=== PATIENT | female | born 1990 | race Caucasian/White ===

== ENCOUNTER 2024-05-15 21:37 | Emergency (ER) | payer SELFPAY ==
[2024-05-15 21:39] VITALS: BP 107/69
--- NOTE | 2024-05-15 23:44 | ED.GENMED ---
History of Present Illness
General
Chief Complaint: Crisis Evaluation
Source: patient
Exam Limitations: none
Time Seen by Provider: 05/15/24 22:48
History of Present Illness
History of Present Illness:
Patient presents with suicidal ideation and plan. She has not had an attempt. She has a history of same. She just left [place] today. She denies any acute ingestion. Denies acute medical issues.
Past History
Past History
ED Past Medical History: NIDDM and Psychiatric (Bipolar/depression/suicidal ideation)
ED Past Surgical History: Other ( [place] teeth. Myringotomy tubes. Multiple [employer] shunts)
Review of Systems
Review of Systems
All Other Systems: Not applicable
Constitutional: Denies fever or chills
Respiratory: Reports no symptoms
Cardiac: Reports no symptoms
ABD/GI: Reports no symptoms
Phy Exam
Physical Exam
Physical Exam:
GENERAL: Alert and oriented in no apparent distress
EYE: Orbits normal.
NECK: Supple, no significant adenopathy.
ENT: Pharynx without erythema
CARDIAC: Regular rate and rhythm without any obvious murmurs.
LUNGS: Clear breath sounds,normal
ABDOMEN: Soft, without focal tenderness or distention
NEUROLOGICAL: Alert and oriented , grossly non-focal
SKIN: Warm and dry, no rash or lesion, no discoloration, skin intact.
MUSCULOSKELETAL: No edema,no deformity.Good color
PSYCH: Normal and appropriate interaction.
Course
Orders/Labs/Results
Orders:
Orders
05/15/24 22:06
1:1 Observation - Suicide/ Violent Behavior As Directed
05/15/24 22:07
Crisis Consult Urgent
Reason for Consult: si
05/15/24 23:37
Alcohol Urgent
Basic Metabolic Panel Urgent
Complete Blood Count/With Diff Urgent
HCG, Serum Qualitative Screen Urgent
Urine Drug Abuse Screen Urgent
Test Result ONCE
Abnormal Lab Results
05/16/24
00:09
WBC 11.4 H 10^3/uL
(4.8-10.8)
RBC 4.14 L 10^6/uL
(4.20-5.40)
Hgb 11.9 L g/dL
(12.0-16.0)
Hct 35.5 L %
(37.0-47.0)
MPV 10.9 H fL
(7.4-10.4)
Abs Immat Gran (auto) 0.2 H 10^3/uL
(0-0.05)
Absolute Neuts (auto) 8.1 H 10^3/uL
(1.4-6.5)
Absolute Monos (auto) 0.7 H 10^3/uL
(0.1-0.6)
Immature Gran % 1.5 H %
(0-0.5)
Lymphocytes % 20.1 L %
(20.5-51.1)
Carbon Dioxide 21 L mmol/L
(22-30)
Glucose 137 H mg/dl
(70-99)
05/16/24 00:09
05/16/24 00:09
Vital Signs
Initial and Last Documented VS:
Initial Vital Signs
Temp Pulse Resp BP Pulse Ox
98.5 F 92 16 107/69 99
05/15/24 21:39 05/15/24 21:39 05/15/24 21:39 05/15/24 21:39 05/15/24 21:39
Last Documented Vital Signs
Temp Pulse Resp BP Pulse Ox
98.5 F 92 16 107/69 99
05/15/24 21:39 05/15/24 21:39 05/15/24 21:39 05/15/24 21:39 05/15/24 21:39
MDM/Problems Addressed
Differential Diagnosis Includes:
Patient here as a voluntary for psychiatric issues. Cooperative. Nothing acute medically. Will check routine labs needed for placement and if all stable patient will be referred over to crisis
*Critical Care Note
Total Time (30-74mins, 75-104mins- exclusive of procedures): Not Applicable
Update Note
Update Note:
Patient with a mild leukocytosis and minimal bandemia although no acute infectious symptoms. Stable for discharge over to crisis
ED Attending Note
-
Portions of this chart may have been created with voice recognition software.� Occasional wrong word or��sound alike� substitutions may have occurred due to the inherent limitations of voice recognition software.
Discharge Plan
Departure
Patient Disposition: Psych Facility
Date of Disposition: 05/16/24
Time of Disposition: 01:20
Discharge Problem:
Depression/suicidal ideation
Referrals:
Nikia Delacruz DO [Family Provider] -
Interventions
Interventions:
*Risk Screen - Suicide Last Done: 05/15/24 21:39
*General Assessment Last Done: 05/15/24 21:39
*Neglect/Abuse Screening Last Done: 05/15/24 21:39
Discharge Date and Time
Print Language: LUXEMBOURGER
[2024-05-16 00:33] LABS: Blood Urea Nitrogen 12 mg/dl (7-17); Calcium 9.6 mg/dl (8.4-10.2); Carbon Dioxide 21 mmol/L (22-30); Chloride 107 mmol/L (98-107); Glucose 137 mg/dl (70-99); HCG, Serum Qualitative Screen Negative; Potassium 3.9 mmol/L (3.5-5.1); Sodium 138 mmol/L (135-145); eGFR > 60.00
[2024-05-16 00:34] LABS: Alcohol None Detected
[2024-05-16 00:46] LABS: % Basophils 0.3 % (0-2); % Eosinophils 1.3 % (0-6); % Immature Granulocytes 1.5 % (0-0.5); % Lymphocytes 20.1 % (20.5-51.1); % Monocytes 5.9 % (1.7-9.3); % Neutrophils 70.9 % (42.2-75.2); Absolute Eosinophils 0.2 10^3/uL (0-0.7); Absolute Immature Granulocytes 0.2 10^3/uL (0-0.05); Absolute Lymphocytes 2.3 10^3/uL (1.2-3.4); Absolute Monocytes 0.7 10^3/uL (0.1-0.6); Absolute Neutrophils 8.1 10^3/uL (1.4-6.5); Hematocrit 35.5 % (37.0-47.0); Hemoglobin 11.9 g/dL (12.0-16.0); Mean Corp Hgb Conc. 33.5 g/dL (33.0-37.0); Mean Corpuscular Hgb 28.7 pg (27.0-31.0); Mean Corpuscular Volume 85.7 fL (81.0-99.0); Mean Platelet Volume 10.9 fL (7.4-10.4); Nucleated Red Blood Cells % 0 %; Platelet Count 179 10^3/uL (130-400); Red Blood Cell Count 4.14 10^6/uL (4.20-5.40); Red Cell Dist. Width 13.6 % (11.5-14.5); White Blood Cell Count 11.4 10^3/uL (4.8-10.8)
[2024-05-16 01:38] VITALS: BP 90/41
== END 2024-05-16 05:30 ==
LOC: EMR 21:37
PROVIDERS: EMERGENCY PHYSICIAN Emergency Medicine; FAMILY PHYSICIAN Internal Medicine
DX: F32.A Depression, unspecified (principal); R45.851 Suicidal ideations; E11.9 Type 2 diabetes mellitus without complications
CPT/HCPCS: 99285; 80048; 82077; 84703; 85025

== ENCOUNTER 2024-09-01 16:27 | Emergency (ER) | payer OTHER, SELFPAY ==
[2024-09-01 16:33] VITALS: BP 143/74
[2024-09-01 18:14] LABS: % Basophils 0.3 % (0-2); % Eosinophils 1.2 % (0-6); % Immature Granulocytes 0.3 % (0-0.5); % Monocytes 5.7 % (1.7-9.3); % Neutrophils 64.5 % (42.2-75.2); Absolute Eosinophils 0.1 10^3/uL (0-0.7); Absolute Lymphocytes 3.1 10^3/uL (1.2-3.4); Absolute Monocytes 0.6 10^3/uL (0.1-0.6); Absolute Neutrophils 7.2 10^3/uL (1.4-6.5); Hematocrit 35.3 % (37.0-47.0); Hemoglobin 11.6 g/dL (12.0-16.0); Mean Corp Hgb Conc. 32.9 g/dL (33.0-37.0); Mean Corpuscular Hgb 27.8 pg (27.0-31.0); Mean Corpuscular Volume 84.7 fL (81.0-99.0); Mean Platelet Volume 10.2 fL (7.4-10.4); Nucleated Red Blood Cells % 0 %; Platelet Count 229 10^3/uL (130-400); Red Blood Cell Count 4.17 10^6/uL (4.20-5.40); Red Cell Dist. Width 14.7 % (11.5-14.5); White Blood Cell Count 11.2 10^3/uL (4.8-10.8)
[2024-09-01 18:16] LABS: Urine Albumin Negative (Neg - Trace); Urine Bilirubin Negative (Negative); Urine Character Cloudy (Clear); Urine Color Yellow; Urine Glucose Negative (Negative); Urine Ketone Negative (Negative); Urine Leukocyte Negative (Negative); Urine Nitrite Negative (Negative); Urine Occult Blood Negative (Negative); Urine Urobilinogen Negative (Neg - 1+)
[2024-09-01 18:25] LABS: Amphetamines Negative (Negative); Barbiturates Negative (Negative); Benzodiazepines Positive (Negative); Buprenorphine Negative (Negative); Cocaine Negative (Negative); Marijuana Negative (Negative); Methadone Negative (Negative); Methamphetamines Negative (Negative); Opiates Negative (Negative); Phencyclidine Negative (Negative); Tricyclic Antidepressants Negative (Negative)
[2024-09-01 18:30] LABS: HCG, Serum Qualitative Screen Negative
[2024-09-01 18:33] LABS: ALT (SGPT) 20 U/L (0-35); AST (SGOT) 18 U/L (14-36); Acetaminophen < 10 ug/ml (10-30); Albumin 4.6 g/dl (3.5-5.0); Alkaline Phosphatase 63 U/L (38-126); Blood Urea Nitrogen 11 mg/dl (7-17); Calcium 9.6 mg/dl (8.4-10.2); Carbon Dioxide 22 mmol/L (22-30); Chloride 109 mmol/L (98-107); Glucose 173 mg/dl (70-99); Potassium 4.1 mmol/L (3.5-5.1); Sodium 140 mmol/L (135-145); Total Bilirubin 0.4 mg/dl (0.2-1.3); Total Protein 7.6 g/dl (6.3-8.2); eGFR > 60.00
[2024-09-01 18:42] LABS: Fentanyl, Urine Negative (Negative)
[2024-09-01 19:31] VITALS: BP 117/71
[2024-09-01] MEDS: TYLENOL 1000 MG PO (19:32)
--- NOTE | 2024-09-01 22:03 | ED.GENMED ---
History of Present Illness
General
Chief Complaint: Crisis Evaluation
Source: patient
Exam Limitations: none
Time Seen by Provider: 09/01/24 17:32
Nursing documentation reviewed up to this point in time: agreed with
History of Present Illness
History of Present Illness:
Patient to ED with complaint of SI. States she 'just wants to end it'. She has been evaluated by crisis in the past for same. Denies HI. Denies any alcohol or drug use.
Past History
Past History
ED Past Medical History: NIDDM and Psychiatric (Bipolar/depression/suicidal ideation)
ED Past Surgical History: Other ( [place] teeth. Myringotomy tubes. Multiple [employer] shunts)
Review of Systems
Review of Systems
Allergies reviewed?: Yes
All Other Systems: ROS reviewed and negative except as documented in HPI and ROS
Constitutional: Reports no symptoms
EENT: Reports no symptoms
Respiratory: Reports no symptoms
Cardiac: Reports no symptoms
ABD/GI: Reports no symptoms
: Reports no symptoms
Musculoskeletal: Reports no symptoms
Skin: Reports no symptoms
Neurological: Reports headache
Psychiatric: Reports suicidal
Phy Exam
General Physical Exam
General Presentation: no apparent distress
General age: appears stated age
General Skin: warm and dry
General Habitus: normal
General Mental: alert
Cardiovascular Exam
Cardiovascular Exam: regular rate/rhythm and no edema
Musculoskeletal Exam
Musculoskeletal Exam: full ROM
Skin Exam
Skin Exam: normal color, warm/dry and no rash
Psychiatric Exam
Psychiatric Exam: suicidal
Course
Orders/Labs/Results
Orders:
Orders
09/01/24 16:38
1:1 Observation - Suicide/ Violent Behavior As Directed
Crisis Consult Urgent
Reason for Consult: SI
09/01/24 17:39
Test Result ONCE
09/01/24 18:03
Complete Blood Count/With Diff Urgent
Comprehensive Metabolic Panel Urgent
Fentanyl, Urine Urgent
HCG, Serum Qualitative Screen Urgent
Tylenol [Acetaminophen] Urgent
Urinalysis Reflex To Culture Urgent
Date Specimen was Collected: 09/01/24
Time Specimen was Collected: 17:50
Urine Drug Abuse Screen Urgent
Date Specimen was Collected: 09/01/24
Time Specimen was Collected: 17:50
09/01/24 18:37
observation [ED Special Safety Observation] ONCE
Observation level: One to Two
09/01/24 19:24
Acetaminophen [Tylenol] 1,000 mg PO NOW STA
09/01/24 19:41
Electrocardiogram (*1) Urgent
Reason for Study: Palpitations
EKG- Treatment ONCE
Abnormal Lab Results
09/01/24
18:03
WBC 11.2 H 10^3/uL
(4.8-10.8)
RBC 4.17 L 10^6/uL
(4.20-5.40)
Hgb 11.6 L g/dL
(12.0-16.0)
Hct 35.3 L %
(37.0-47.0)
MCHC 32.9 L g/dL
(33.0-37.0)
RDW 14.7 H %
(11.5-14.5)
Absolute Neuts (auto) 7.2 H 10^3/uL
(1.4-6.5)
Chloride 109 H mmol/L
(98-107)
Glucose 173 H mg/dl
(70-99)
Acetaminophen < 10 L ug/ml
(10-30)
U Benzodiazepines Scrn Positive H
(Negative)
09/01/24 18:03
09/01/24 18:03
Vital Signs
Initial and Last Documented VS:
Initial Vital Signs
Temp Pulse Resp BP Pulse Ox
98 F 88 16 143/74 97
09/01/24 16:33 09/01/24 16:33 09/01/24 16:33 09/01/24 16:33 09/01/24 16:33
Last Documented Vital Signs
Temp Pulse Resp BP Pulse Ox
98.7 F 81 20 117/71 95
09/01/24 19:31 09/01/24 19:31 09/01/24 19:31 09/01/24 19:31 09/01/24 19:31
*Critical Care Note
Total Time (30-74mins, 75-104mins- exclusive of procedures): Not Applicable
Update Note
Update Note:
Patient to ED for crisis eval. Admits to SI. No plan at present. Labs, EKG reviewed. SHe is medically stable for inpatient psychiatric care.
ED Attending Note
-
Portions of this chart may have been created with voice recognition software.� Occasional wrong word or��sound alike� substitutions may have occurred due to the inherent limitations of voice recognition software.
Discharge Plan
Departure
Patient Disposition: Psych Facility
Date of Disposition: 09/01/24
Time of Disposition: 22:42
Patient with high blood pressure during this ER visit?: No
Condition: Good
Discharge Problem:
Medical clearance for psychiatric admission
Referrals:
Nikia Delacruz DO [Family Provider] -
Interventions
Interventions:
*Risk Screen - Suicide Last Done: 09/01/24 16:37
*General Assessment Last Done: 09/01/24 19:35
*ED COVID-19 Vaccine History Last Done: 09/01/24 19:35
*Nursing Disposition Last Done: 09/01/24 22:54
ED-Psychological Assessment Last Done: 09/01/24 19:48
Discharge Date and Time
Discharge Date/Time: 09/01/24 22:55
Print Language: BHUTANESE
== END 2024-09-01 22:55 ==
LOC: EMR 16:27
PROVIDERS: Nurse Practitioner; EMERGENCY PHYSICIAN Student in an Organized Health Care Education/Training Program; FAMILY PHYSICIAN Internal Medicine
DX: Z00.8 Encounter for other general examination (principal); R45.851 Suicidal ideations; F31.9 Bipolar disorder, unspecified; E11.9 Type 2 diabetes mellitus without complications; R51.9 Headache, unspecified
CPT/HCPCS: 99285; 80053; 80143; 80306; 80307; 81003; 84703; 85025; 93005